=== PATIENT | female | born 1980 | race African-American/Black ===

== ENCOUNTER → 2018-10-13 | Emergency (ER) | payer MEDICAID ==
[~2018-10-13] VITALS: Ht 154.9 cm; Wt 49.9 kg
[~2018-10-13] MED LIST: DOXYCYCLINE HY100 M6 PO; FLUCONAZOLE150 MG ORAL
[2018-10-13 13:59] VITALS: BP 113/77
--- NOTE | 2018-10-13 14:08 | NUR ---
ED Nurse Note: Patient walked into ED c/o burning sensation while voiding, and lower abdominal pain for 1 day. patient is alert awake x4 ambulatory. breathing unlabored and even.
[2018-10-13 14:51] LABS: APPEARANCE,URINE CLEAR; BILIRUBIN, URINE NEGATIVE (NEGATIVE); COLOR,URINE PALE YELLOW; GLUCOSE, URINE (UA) NEGATIVE (NEGATIVE); KETONES,URINE NEGATIVE (NEGATIVE); LEUKOCYTE ESTERASE ,URINE NEGATIVE (NEGATIVE); NITRITE,URINE NEGATIVE (NEGATIVE); PH,URINE 7 (4.5-8.0); PROTEIN,URINE NEGATIVE (NEGATIVE); UROBILINOGEN,URINE NORMAL MG/DL (0.0-1.0)
--- NOTE | 2018-10-13 15:02 | Emergency Room Report ---
History of Present Illness General Chief Complaint: Female Urogenital Problems Source: Patient Present Illness HPI 38-year-old female with no significant past medical history here complaining of few days of dysuria and urinary frequency. Patient also reports that she has been sexually active unprotected and reports yellow vaginal discharge. Denies fever and chills, nausea vomiting, abdominal pain. Patient has not taken medication for her symptoms. Patient last menstrual period was 2 weeks ago denies being . Allergies: Coded Allergies: AMOXICILLIN (Verified Allergy, Unknown, 10/13/18) KETOROLAC (Verified Allergy, Unknown, 10/13/18) PENICILLINS (Verified Allergy, Unknown, 10/13/18) Patient History Past Medical History: see triage record Past Surgical History: unable to obtain Pertinent Family History: none Last Menstrual Period: 09/20/18 Now: No Immunizations: UTD Reviewed Nursing Documentation: PMH: Agreed; PSxH: Agreed Nursing Documentation-PMH Past Medical History: No History, Except For Review of Systems All Other Systems: negative except mentioned in HPI Physical Exam Vital Signs Date Time Temp Pulse Resp B/P (MAP) Pulse Ox O2 Delivery O2 Flow Rate FiO2 10/13/18 13:59 98.1 96 18 113/77 (89) 96 Room Air Sp02 EP Interpretation: reviewed, normal General Appearance: normal inspection, well appearing Head: normocephalic, atraumatic Eyes: bilateral eye normal inspection, bilateral eye PERRL ENT: normal ENT inspection Neck: normal inspection, full range of motion, supple Respiratory: normal inspection, chest non-tender, lungs clear Cardiovascular #1: normal inspection, no edema, no gallop Gastrointestinal: normal inspection, non tender, soft Genitourinary: no CVA tenderness Musculoskeletal: back normal Neurologic: normal inspection, alert, oriented x3 Psychiatric: normal inspection, judgement/insight normal Skin: rash Lymphatic: normal inspection Medical Decision Making PA Attestation All my diagnosis and treatment plans were reviewed ad discussed with my supervising physician Dr. Pineda Diagnostic Impression: Primary Impression: STD (female) Additional Impressions: UTI (urinary tract infection) Vaginitis ER Course 38-year-old female with no significant past medical history here complaining of few days of dysuria and urinary frequency. Patient also reports that she has been sexually active unprotected and reports yellow vaginal discharge. Denies fever and chills, nausea vomiting, abdominal pain. Patient has not taken medication for her symptoms. Patient last menstrual period was 2 weeks ago denies being . Ddx considered but are not limited to: UTI, pylonephritis, urinary incontinence , prolapsed bladder Vital signs: are WNL, pt. is afebrile H&PE are most consistent with: UTI, STD exposure, vaginitis ORDERS: UA, GC and chlamydia, doxycycline, Diflucan ED INTERVENTIONS: None required at this time. DISCHARGE: At this time pt. is stable for d/c to home. Will provide printed patient care instructions, and any necessary prescriptions. Care plan and follow up instructions have been discussed with the patient prior to discharge. Patient eloped before given medication as patient wants to know exactly what she has today even though I explained we will not know whether she has chlamydia or gonorrhea and those tests take a few days to be ran. I explained to the patient is better to be empirically treated however she elopes Last Vital Signs Date Time Temp Pulse Resp B/P (MAP) Pulse Ox O2 Delivery O2 Flow Rate FiO2 10/13/18 13:59 98.1 96 18 113/77 96 Room Air Disposition: ELOPED Condition: Stable Scripts Fluconazole (FLUCONAZOLE) 150 Mg Tablet 150 MG ORAL ONCE for 1 Day, #1 TAB 0 Refills Prov: Boris Jaramillo 10/13/18 Doxycycline Hyclate (DOXYCYCLINE HYCLATE) 100 Mg Tablet 100 MG PO BID for 10 Days, #20 TAB Prov: Boris Jaramillo 10/13/18 Patient Instructions: Vaginitis, Urinary Tract Infection Additional Instructions: Take medication as directed follow-up with your primary care provider avoid sexual encounter without protection Boris Jaramillo Oct 13, 2018 15:02
--- NOTE | 2018-10-13 15:30 | NUR ---
ELOPEMENT: Attempted to give patient discharge instruction, patient left without taking the discharge papers. Boris WHIPPLE made aware.
--- NOTE | 2018-10-13 15:31 | NUR ---
ELOPEMENT: RN realized that patient eloped/left without discharge papers, was told by another staff. the room was assessed after patient left, no patient's belongings noted.
== END | disposition left against medical advice (07) ==
LOC: EMR 14:35
DX: N39.0 Urinary tract infection, site not specified (principal); N76.0 Acute vaginitis; A64 Unspecified sexually transmitted disease; Z88.0 Allergy status to penicillin; Z88.1 Allergy status to other antibiotic agents; Z88.2 Allergy status to sulfonamides; Z88.8 Allergy status to other drugs, medicaments and biological substances
CPT/HCPCS: 81001; 81025; 87491; 87590; 99283